=== PATIENT | male | born 1955 | race Caucasian/White ===

== ENCOUNTER 2019-06-12 18:32 | Emergency (ER) | payer SELFPAY ==
[~2019-06-12] VITALS: Ht 188 cm; Wt 75.0 kg
[2019-06-13 11:34] VITALS: BP 119/75
== END 2019-06-13 12:04 | disposition home or self-care (01) ==
LOC: ER 18:32
DX: M54.2 Cervicalgia (principal); Z59.0 Homelessness
CPT/HCPCS: 99283; Z7610